=== PATIENT | male | born 1945 | race Two or more races ===

== ENCOUNTER 2017-01-26 14:05 | Observation (INO) | payer OTHER, BC ==
[~2017-01-26] VITALS: Ht 175.3 cm; Wt 116.0 kg
[2017-01-26] MEDS ORDERED: ZOCOR20 MG PO (14:21)
[2017-01-26] MEDS ORDERED: COZAAR100 MG PO (14:22)
[2017-01-26] MEDS ORDERED: HYDROCHLOROTHIA50 MG PO (14:22)
[2017-01-26] MEDS ORDERED: HYTRIN1 MG PO (14:23)
[2017-01-26] MEDS ORDERED: LO-DOSE ASPIRIN81 M1 PO (14:24)
[2017-01-26] MEDS ORDERED: GLUCOSAMINE1000 MG PO (14:24)
[2017-01-26] MEDS ORDERED: MSM1000 MG PO (14:25)
[2017-01-26] MEDS ORDERED: GARLIC OIL1000 MG PO (14:25)
[2017-01-26] MEDS ORDERED: POTASSIUM-9999 MG PO (14:25)
[2017-01-26] MEDS ORDERED: VITAMIN D2000 UNIT PO (14:26)
[2017-01-26 14:45] VITALS: BP 165/80
[2017-01-26 22:13] LABS: HEMATOCRIT 42.4 % (38.0-50.0); MCHC 35.1 G/DL (30.0-36.0); MCV 93.8 FL (86-99); MEAN PLAT.VOLUME 9.5 uM^3 (9.0-12.4); PLATELET COUNT 164 K/uL (156-360); RBC DIS.WIDTH-CV 12.9 % (11.8-14.6); RBC DIS.WIDTH-SD 44.2 % (39-53); RED BLOOD COUNT 4.52 M/uL (4.00-5.50); WHITE BLOOD COUNT 8.2 K/uL (4.1-10.2)
[2017-01-26 22:23] LABS: INTER. NORMALIZED RATIO 1.2; PROTHROMBIN TIME 12.7 SEC (10.2-12.9)
[2017-01-26 22:26] LABS: PTT 27.8 SEC (25-37)
[2017-01-26 22:35] LABS: TROP-I INTERPRETATION NEGATIVE; TROPONIN-I 0.02 ng/mL (0.0-0.30)
[2017-01-26 22:39] LABS: ANION GAP 12 MEQ/L (2-14); CHLORIDE 100 MEQ/L (99-109); MAGNESIUM 1.5 mg/dl (1.3-2.7); POTASSIUM 3.6 MEQ/L (3.7-5.4); SAMPLE HEMOLYSIS CHECK 0; SAMPLE ICTERIC CHECK 0; SAMPLE LIPEMIA CHECK 0; SODIUM 140 MEQ/L (136-147)
[2017-01-26 22:48] LABS: ALKALINE PHOSPHATASE 54 IU/L (3-129); GFR ESTIMATE (CALCULATED) > 59 mL/min/; GLUCOSE 241 mg/dL (70-99); UREA NITROGEN (BUN) 19 mg/dL (9-23)
[2017-01-26 22:59] LABS: HDL CHOLESTEROL 53 MG/DL (Desirable>=40); LDL CHOLESTEROL 88 mg/dL (Desirable<100); NON-HDL CHOLESTEROL 101 mg/dL (Desirable<160); TOTAL CHOLESTEROL 154 mg/dL (Desirable<200); TRIGLYCERIDES 67 MG/DL (Normal: <150)
[2017-01-26 23:19] VITALS: BP 119/61
[2017-01-26 23:23] VITALS: BP 123/63
[2017-01-26 23:53] VITALS: BP 110/54
[2017-01-27] VITALS (7 sets, daily range): BP systolic 98–133; BP diastolic 49–62
[2017-01-27 05:51] LABS: TROP-I INTERPRETATION NEGATIVE; TROPONIN-I 0.03 ng/mL (0.0-0.30)
[2017-01-27 12:34] LABS: TROP-I INTERPRETATION NEGATIVE; TROPONIN-I 0.02 ng/mL (0.0-0.30)
== END 2017-01-27 19:33 | disposition home or self-care (01) ==
LOC: SDC 14:05 → ENRESERV 21:50 → 4EAST 21:51 → 2SOUTH 21:51 → ENRESERV 22:21 → 4EAST 23:11
PROVIDERS: Hospitalist
DX: I48.91 Unspecified atrial fibrillation (principal); I97.191 Other postprocedural cardiac functional disturbances following other surgery; I97.791 Other intraoperative cardiac functional disturbances during other surgery; Y83.8 Other surgical procedures as the cause of abnormal reaction of the patient, or of later complication, without mention of misadventure at the time of the procedure; H33.021 Retinal detachment with multiple breaks, right eye; I10 Essential (primary) hypertension; E78.5 Hyperlipidemia, unspecified; Z87.891 Personal history of nicotine dependence; E66.9 Obesity, unspecified; Z68.37 Body mass index [BMI] 37.0-37.9, adult; D68.9 Coagulation defect, unspecified
CPT/HCPCS: 71010; 71275; 80053; 80061; 83735; 84100; 84439; 84443; 84484; 85027; 85379; 85610; 85730; 93005; 94660; G0378; J0131; J0690; J1100; J2405; J3010; J3300

== ENCOUNTER 2017-06-17 09:53 | Day surgery (SDC) | payer OTHER, BC ==
[~2017-06-17] VITALS: Ht 175.3 cm; Wt 113.0 kg
[~2017-06-17 09:53] MED LIST: ALEVE220 MG PO; COZAAR100 MG PO; GARLIC OIL1000 MG PO; GLUCOSAMINE1000 MG PO; HYDROCHLOROTHIA50 MG PO; HYTRIN1 MG PO; LO-DOSE ASPIRIN81 M1 PO; LOTEMAX3.5 GM RIGHT EYE; MSM1000 MG PO; POTASSIUM-9999 MG PO; PROLENSA3 ML RIGHT EYE; TOPROL XL25 MG PO; VITAMIN D2000 UNIT PO; ZOCOR20 MG PO
[2017-06-17] MEDS ORDERED: TYLENOL EXTRA500 MG PO (11:31)
[2017-06-17 11:46] VITALS: BP 197/89
[2017-06-17 15:35] VITALS: BP 139/89
== END 2017-06-17 16:00 | disposition home or self-care (01) ==
LOC: SDC 09:53
DX: H33.41 Traction detachment of retina, right eye (principal); H35.371 Puckering of macula, right eye; I10 Essential (primary) hypertension; I48.91 Unspecified atrial fibrillation; Z87.891 Personal history of nicotine dependence; Z79.82 Long term (current) use of aspirin
CPT/HCPCS: J2250; J3300